=== PATIENT | female | born 1980 | race Caucasian/White ===

== ENCOUNTER 2016-06-04 08:23 | Emergency (ER) | payer BC, MEDICAID ==
[~2016-06-04] VITALS: Ht 142.2 cm; Wt 74.4 kg
[2016-06-04 08:28] VITALS: Ht 142.2 cm; Wt 74.4 kg
[2016-06-04 09:37] LABS: ADD SCAN DIFF NO
[2016-06-04 09:45] LABS: ADD UMIC YES; URINE BILIRUBIN (Dip) NEGATIVE (NEGATIVE); URINE BLOOD (Dip) 1+ (NEGATIVE); URINE COLOR LT. YELLOW (YELLOW); URINE GLUCOSE (Dip) NEGATIVE (NEGATIVE); URINE KETONES (Dip) NEGATIVE (NEGATIVE); URINE LEUKOCYTE ESTERASE (Dip) NEGATIVE (NEGATIVE); URINE NITRITE (Dip) NEGATIVE (NEGATIVE); URINE TOTAL PROTEIN (Dip) NEGATIVE (NEGATIVE); URINE UROBILINOGEN (Dip) 0.2 E.U./dL (0.1-1.0)
[2016-06-04 09:47] LABS: BASOPHILS % 0.2 % (0.0-2.0); EOSINOPHILS # 0.6 10^3/ul (0.0-0.5); EOSINOPHILS % 7.1 % (0.0-7.0); HEMATOCRIT 45.8 % (37.0-47.0); HEMOGLOBIN 14.7 g/dl (12.0-16.0); LYMPHOCYTES # 3.2 10^3/ul (0.8-2.9); LYMPHOCYTES % 36.3 % (15.0-51.0); MEAN CORPUSCULAR HEMOGLOBIN 28.7 pg (29.0-33.0); MEAN CORPUSCULAR HGB CONC 32.1 g/dl (32.0-37.0); MEAN CORPUSCULAR VOLUME 89.3 fl (82.0-101.0); MEAN PLATELET VOLUME 9.7 fl (7.4-10.4); MONOCYTE # 0.7 10^3/ul (0.3-0.9); MONOCYTES % 7.7 % (0.0-11.0); NEUTROPHIL # 4.2 10^3/ul (1.6-7.5); NEUTROPHILS % 48.1 % (39.0-77.0); PLATELET COUNT 257 10^3/UL (140-415); RED BLOOD COUNT 5.13 10^6/ul (4.20-5.40); RED CELL DISTRIBUTION WIDTH 12.4 % (11.5-14.5); WHITE BLOOD COUNT 8.7 10^3/ul (4.8-10.8)
[2016-06-04 09:49] LABS: ALBUMIN 4.4 g/dl (3.3-4.9)
[2016-06-04 09:50] LABS: POTASSIUM 3.9 mmol/L (3.5-5.1)
[2016-06-04 09:52] LABS: ALBUMIN/GLOBULIN RATIO 1.1; BILIRUBIN,INDIRECT 0.2 mg/dl (0-1.1); BILIRUBIN,TOTAL 0.2 mg/dl (0.2-1.3); CREATININE 0.54 mg/dl (0.44-1.00); TOTAL PROTEIN 8.4 g/dl (6.1-8.1)
[2016-06-04 09:53] LABS: CALCIUM 9.7 mg/dl (8.4-10.2)
--- NOTE | 2016-06-04 09:53 | RADRPT ---
PROCEDURE: Abdominal Ultrasound (right upper quadrant). CLINICAL INDICATION: Abdominal pain TECHNIQUE: Multiple real-time longitudinal and transverse images of the right upper quadrant of th e abdomen were acquired utilizing a curved array transducer. Images were reviewed on a high-resoluti on PACS workstation. COMPARISON: None FINDINGS: The liver demonstrates increased echogenicity consistent with fatty infiltration. The liver is norm al in size. No focal masses are identified. There is no evidence of intra or extrahepatic ductal d ilatation. The common bile duct measures 4.0 mm in diameter. No gallstones or gallbladder wall thic kening is seen. The visualized portions of the pancreas are unremarkable with obscuration of the tail of the pancrea s. No free fluid is identified. There is no evidence of right hydronephrosis or renal calcification. The right kidney measures 10.8 cm in length. The visualized portions of the aorta and inferior vena cava are within normal limits. IMPRESSION: 1. Fatty infiltration of the liver. 2. Otherwise unremarkable right upper quadrant ultrasound. RPTAT: KK .Lobito Zaidi MD, Date Time Electronically viewed and signed by .Lobito Zaidi MD, MD on 06/04/2016 09:53 .B/
[2016-06-04 09:59] LABS: BACTERIA,URINE FEW; URINE RBCS 0-2 /HPF (0)
--- NOTE | 2016-06-04 10:05 | RADRPT ---
PROCEDURE: CT Abdomen and Pelvis without contrast. CLINICAL INDICATION: Abdominal pain TECHNIQUE: CT of the abdomen and pelvis was performed on a multi-detector scanner without IV contr ast. Coronal and sagittal images were reformatted from the axial data set. One or more of the foll owing dose reduction techniques were used: automated exposure control, adjustment of the mA and/or kV according to patient size, use of iterative reconstruction technique. CTDI = 15.05 mGy. DLP = 89 2.33 mGy-cm. COMPARISON: Ultrasound, 06/04/2016 FINDINGS: CT abdomen: The lung bases are clear. The heart size is normal, without pericardial effusion. The liver is fat ty infiltrated, without evidence of focal mass. Gallbladder, biliary tree, pancreas, spleen, adrena l glands and kidneys are unremarkable. No urolithiasis or obstructive uropathy is identified. The stomach is grossly unremarkable. The aorta is of normal caliber. There is no retroperitoneal lymphadenopathy. The leandro hepatis reg ion is clear. CT pelvis: No bowel obstruction, free intraperitoneal air or abscess is identified. The appendix is well visua lized and normal. There is no diverticulosis, diverticulitis or colitis. Urinary bladder, uterus a nd adnexa are grossly unremarkable. No pelvic mass, free fluid or lymphadenopathy is identified. The surrounding osseous structures are unremarkable. No osteolytic or osteoblastic lesion is detect ed. IMPRESSION: 1. Hepatic steatosis is noted. 2. No mass, lymphadenopathy, or focal acute inflammatory process is identified. RPTAT: TT .Cesar Graves MD, Date Time Electronically viewed and signed by .Cesar Graves MD, on 06/04/2016 10:04 .R/
[2016-06-04] MEDS ORDERED: FAMO-18 PO (10:17)
[2016-06-04] MEDS ORDERED: HYDR-906 PO (10:17)
--- NOTE | 2016-06-04 14:07 | ERD ---
DATE OF SERVICE: 06/04/2016 HISTORY OF PRESENT ILLNESS: The patient is a 35-year-old female coming in complaining of abdominal pain with epigastric pain. She states the pain comes and goes. There is pain with eating. She had some dysuria, but no blood in her urine. Had tactile fevers. Denies any chest pain or shortness o f breath. No pelvic pain. Denies any vaginal discharge. No medical problems. Denies vomiting. PAST MEDICAL HISTORY: Denies medical problems. ALLERGIES TO MEDICATIONS: DENIES. SURGICAL HISTORY: . SOCIAL HISTORY: Denies. REVIEW OF SYSTEMS: A 12-point review of systems was done. Refer to HPI for positives, all other sy stems negative. PHYSICAL EXAMINATION VITAL SIGNS: Temperature 97, pulse 71, blood pressure is 127/65, respiratory rate 16, O2 saturation 98% on room air. Pain intensity is 6/10. GENERAL: The patient is well-appearing, well-nourished, no acute distress. HEENT: Atraumatic. Conjunctivae are pink. Pupils equal, round, and reactive to light. There is no s cleral icterus. Tympanic membranes clear bilaterally. Oropharynx clear. No nystagmus or photophobia . CHEST: Clear to auscultation bilaterally. There are no rales, wheezes or rhonchi. HEART: Regular rate and rhythm. No murmurs, clicks, rubs or gallops. No S3 or S4. ABDOMEN: Normoactive bowel sounds heard on auscultation. No distention. No organomegaly. No rigi dity. Mild tenderness to palpation in the epigastric region. EMERGENCY ROOM COURSE: The patient had blood work done in the ER. CBC was within normal limits. C MP shows mild elevation of AST of 48 and ALT of 79, otherwise within normal limits. The patient's u rine was normal. The patient had a right lower quadrant ultrasound which showed fatty liver, otherw ise unremarkable right upper quadrant ultrasound. The patient had a CT abdomen and pelvis with hepa tic steatosis noted and no mass, lymphadenopathy or focal acute inflammatory process identified. DIAGNOSIS: Abdominal pain, generalized. MEDICAL DECISION MAKING: The patient's exams are within normal limits. The patient may have underl sammy gastritis. The patient did not have abnormal findings noted on blood work. I did not feel [place] t there was indication for further workup or admission at this time. The patient was well appearing . DISCHARGE: The patient is discharged stable. The patient is a given prescription for famotidine an d [place], and told to follow up with primary care within 1 to 2 days for reevaluation. The patient w as told if symptoms progress or worsen, to return to the ER. All other questions answered at the ti me of discharge. Discharge summary given at the time of departure. The patient understood and comp lied with plan. Dictated By: PAIGE DAWN for MAICOL MCCRAY/ALISA Conf#: [id number] DID#: [id number]
== END 2016-06-04 10:33 | disposition home or self-care (01) ==
LOC: FTE 08:23
DX: R10.84 Generalized abdominal pain (principal); R10.2 Pelvic and perineal pain
CPT/HCPCS: 36415; 74176; 76705; 80053; 81001; 81003; 83690; 85025